=== PATIENT | male | born 1960 | race American Indian/Alaskan Native ===

== ENCOUNTER 2017-01-25 18:38 | Inpatient (IN) | payer BC ==
[2017-01-25] MEDS ORDERED: SENOKOT PO PRN (19:01)
[2017-01-25] MEDS ORDERED: D50W (25GM) IV PRN (19:01)
[2017-01-25] MEDS: COLACE PO SCH (22:32)
[2017-01-25] MEDS: COREG PO SCH (22:33)
[2017-01-25] MEDS: PEPCID PO SCH (22:33)
[2017-01-25] MEDS: NOVOLOG SUB-Q SCH (22:33)
[2017-01-26] MEDS: NOVOLOG SUB-Q SCH ×4 (07:30→22:33)
[2017-01-26 07:37] LABS: Basophils % (Auto) 0.4 % (0.0-1.8); Eosinophils % (Auto) 0.8 % (0.0-4.3); Hematocrit 37.9 % (35.5-45.6); Hemoglobin 12.3 gm/dl (11.8-15.2); Mean Corpuscular HGB Conc 33 % (32-34); Mean Corpuscular Volume 71 fl (84-94); Platelet Count 298 K/mm3 (140-440); Red Blood Count 5.35 M/mm3 (3.65-5.03); Red Cell Distribution Width 15.7 % (13.2-15.2); White Blood Count 5.3 K/mm3 (4.5-11.0)
[2017-01-26 07:54] LABS: Alanine Aminotransferase 30 units/L (7-56); Albumin 3.3 g/dL (3.9-5); Albumin/Globulin Ratio 0.9 %; Alkaline Phosphatase 59 units/L (35-129); Anion Gap 16 mmol/L; BUN/Creatinine Ratio 23.75; Blood Urea Nitrogen 19 mg/dL (9-20); Calcium 9.1 mg/dL (8.4-10.2); Carbon Dioxide 24 mmol/L (22-30); Chloride 102.6 mmol/L (98-107); Glucose 97 mg/dL (75-100); Potassium 4.4 mmol/L (3.6-5.0); Sodium 138 mmol/L (137-145); Total Protein 6.8 g/dL (6.3-8.2)
[2017-01-26] MEDS: COREG PO SCH ×2 (08:00→22:32)
[2017-01-26] MEDS: NORVASC PO SCH (08:00)
[2017-01-26 08:08] LABS: Mean Corpuscular Hemoglobin 23 pg (28-32)
[2017-01-26] MEDS: LOVENOX SUB-Q SCH (08:47)
[2017-01-26] MEDS: PLAVIX PO SCH (08:47)
[2017-01-26] MEDS: GLUCOPHAGE PO SCH ×2 (08:48→18:02)
[2017-01-26] MEDS: BABY ASPIRIN PO SCH (08:48)
[2017-01-26] MEDS: PEPCID PO SCH ×2 (08:48→22:32)
[2017-01-26] MEDS: COLACE PO SCH ×2 (08:48→22:32)
--- NOTE | 2017-01-26 12:02 | History and Physical Report ---
History of Present Illness Date: 01/26/17 Referring Facility: [facility] Date of admission: 01/25/17 18:38 Chief Complaint: acute ischemic right LOLA CVA History of present illness: POST ADMISSION PHYSICIAN EVALUATION ONSET DATE: 01/08/2017 IMPAIRMENT GROUP CODE: 01.1 ETIOLOGIC DIAGNOSIS: acute ischemic right LOLA CVA STATUS CHANGES SINCE PREADMISSION SCREENING: PAS has been reviewed. No acute changes in comparison to PAS. Pt was able to initiate in therapies on today; currently remains an appropriate candidate for IRU admission. PREVIOUS FUNCTIONAL STATUS: Independent with ADLs, gait, transfers CURRENT FUNCTIONAL STATUS: per PAS, s/u-Susie for eating; modA for grooming and bathing; Susie for UB Dressing; mod-maxA for LB dressing and toileting; modA for transfers HPI 56 y.o. who reported acute onset of left sided weakness, dizziness, and dysarthria a few days prior to presenting to [facility]. Pt initially presented to [facility] with symptoms; discharged home. Due to pt having ongoing symptoms, pt later went to [facility] for further evaluation. CT Brain showed hypodensity within the right LOLA distribution; MRI showed remote lacunar infarction and superimposed acute/subacute infraction of right frontal lobe, LOLA territory. Acute care course also notable for AFib with RVR (noted on admission), which spontaneously resolved; Rigth ICA stent placement on 01/13/2107 (80-99% stenosis noted on CTA). Pt has continued with left sided weakness and functional deficits. Pt is now admitted to IRU for aggressive therapies and ongoing medical management. Past History Past Medical History: atrial fib, diabetes, hypertension, other (occlusive thrombus in distal left cephalic vein) Past Surgical History: Other (right ICA stent placement during acute admission; no prior surgeries reported) Social history: Lives alone. denies: smoking Family history: CAD, hypertension, stroke Medications and Allergies Allergies Allergy/AdvReac Type Severity Reaction Status Date / Time No Known Allergies Allergy Unverified 01/25/17 18:47 Home Medications Medication Instructions Recorded Confirmed Last Taken Type Aspirin BABY CHEW TAB 81 mg PO DAILY 01/25/17 01/25/17 Unknown History AtorvaSTATin [Lipitor] 80 mg PO QHS 01/25/17 01/25/17 Unknown History Carvedilol [Coreg] 12.5 mg PO BID 01/25/17 01/25/17 Unknown History Clopidogrel Bisulfate [Plavix] 75 mg PO DAILY 01/25/17 01/25/17 Unknown History Docusate Sodium [Colace CAP] 100 mg PO BID 01/25/17 01/25/17 Unknown History Ranitidine HCl [Zantac 150 MG TAB] 150 mg PO BID 01/25/17 01/25/17 Unknown History Sennosides [Senna] 8.6 mg PO HS 01/25/17 01/25/17 Unknown History amLODIPine [Norvasc] 10 mg PO DAILY 01/25/17 01/25/17 Unknown History metFORMIN 500 mg PO BID 01/25/17 01/25/17 Unknown History Active Meds: Active Medications Acetaminophen (Tylenol) 650 mg PO Q4H PRN PRN Reason: Pain MILD(1-3)/Fever >100.5/SINGLETON Amlodipine Besylate (Norvasc) 10 mg PO QDAY [facility] Last Admin: 01/26/17 08:00 Dose: Not Given Aspirin (Baby Aspirin) 81 mg PO QDAY [facility] Last Admin: 01/26/17 08:48 Dose: 81 mg Carvedilol (Coreg) 12.5 mg PO BID [facility] Last Admin: 01/26/17 08:00 Dose: Not Given Clopidogrel Bisulfate (Plavix) 75 mg PO QDAY [facility] Last Admin: 01/26/17 08:47 Dose: 75 mg Dextrose (D50w (25gm)) 50 ml IV PRN PRN PRN Reason: Hypoglycemia Docusate Sodium (Colace) 100 mg PO BID [facility] Last Admin: 01/26/17 08:48 Dose: 100 mg Enoxaparin Sodium (Lovenox) 40 mg SUB-Q QDAY [facility] Last Admin: 01/26/17 08:47 Dose: 40 mg Famotidine (Pepcid) 20 mg PO BID [facility] Last Admin: 01/26/17 08:48 Dose: 20 mg Insulin Aspart (Novolog) 0 units SUB-Q ACHS [facility] PRN Reason: Protocol Last Admin: 01/26/17 07:30 Dose: Not Given Metformin HCl (Glucophage) 500 mg PO BIDDIAB [facility] Last Admin: 01/26/17 08:48 Dose: 500 mg Senna (Senokot) 8.6 mg PO Q12H PRN PRN Reason: Laxative Effect Review of Systems All systems: negative Ears, nose, mouth and throat: no headache Cardiovascular: no chest pain Respiratory: no cough Gastrointestinal: no nausea, no vomiting Genitourinary Male: no dysuria Neurological: gait dysfunction Exam - Constitutional Vitals: Vital Signs - 12hr 01/26/17 01/26/17 08:00 08:25 Temperature 98.7 F Pulse Rate 56 L Pulse Rate [ 56 L From Monitor] Respiratory 20 Rate Blood Pressure 103/78 Blood Pressure 103/78 [Right Arm] O2 Sat by Pulse 100 Oximetry General appearance: no acute distress, obese - EENT Eyes: EOM intact ENT: hearing intact - Neck Neck: supple, normal ROM - Respiratory Respiratory effort: normal Respiratory: bilateral: CTA - Cardiovascular Rhythm: regular Heart Sounds: Present: S1 & S2 - Extremities Extremities: No edema - Gastrointestinal General gastrointestinal: Present: soft, non-tender, non-distended, normal bowel sounds - Integumentary Integumentary: Present: clear - Musculoskeletal Musculoskeletal: left sided weakness (4/5 LUE, LLE; minimal LUE drift) - Neurologic Neurologic: CNII-XII intact, moves all extremities, other (decreased sensation at LUE) - Psychiatric Psychiatric: appropriate mood/affect, intact judgment & insight, memory intact, cooperative - Allied health notes FIMS assesment as documented by PT/OT/ST: Social interaction/Memory/Problem solving Social Interaction FIM Score 5. Supervision (Needs supv. <10%. Needs encouragement to participate.) Memory FIM Score 4. Minimal Assistance (Recognizes and remembers 75-90%.) Problem Solving FIM Score 4. Minimal Assistance (Solves routine problems 75-90%.) - Labs CBC & Chem 7: 01/26/17 06:48 01/26/17 06:48 Labs: Laboratory Results - last 72 hr 01/25/17 01/26/17 01/26/17 22:15 06:48 06:48 WBC 5.3 RBC 5.35 H Hgb 12.3 Hct 37.9 MCV 71 L MCH 23 L MCHC 33 RDW 15.7 H Plt Count 298 Lymph % (Auto) 21.0 [place] % (Auto) 15.7 H Eos % (Auto) 0.8 Baso % (Auto) 0.4 Lymph # 1.1 L [place] # 0.8 Eos # 0.0 Baso # 0.0 Seg Neutrophils % 62.1 Seg Neutrophils # 3.3 Sodium 138 Potassium 4.4 Chloride 102.6 Carbon Dioxide 24 Anion Gap 16 BUN 19 Creatinine 0.8 Estimated GFR > 60 BUN/Creatinine Ratio 23.75 Glucose 97 POC Glucose 110 H Calcium 9.1 Total Bilirubin 0.40 AST 26 ALT 30 Alkaline Phosphatase 59 Total Protein 6.8 Albumin 3.3 L Albumin/Globulin Ratio 0.9 01/26/17 07:12 WBC RBC Hgb Hct MCV MCH MCHC RDW Plt Count Lymph % (Auto) [place] % (Auto) Eos % (Auto) Baso % (Auto) Lymph # [place] # Eos # Baso # Seg Neutrophils % Seg Neutrophils # Sodium Potassium Chloride Carbon Dioxide Anion Gap BUN Creatinine Estimated GFR BUN/Creatinine Ratio Glucose POC Glucose 75 Calcium Total Bilirubin AST ALT Alkaline Phosphatase Total Protein Albumin Albumin/Globulin Ratio Assessment and Plan Assessment and plan: 56 y.o. male with acute ischemic right LOLA CVA; improving left hemiparesis, gait dysfunction. Also s/p right ICA stent placement. The patient is currently medically stable, however, requires ongoing medical management. Pt is appropriate for inpatient rehabilitation admission and is thought to be able to tolerate at least 3 hours of therapy a day, 5 days a week including 1 hour of physical therapy, 1 hour of occupational therapy, and 1 hour of speech therapy. Patient is able to understand and follow basic directions and has attainable rehab goals. Potential barriers/complications include extension/ recurrent CVA, falls, DVT, PE, arrhythmia, syncope, hypoglycemia, hypotension. Plan 1. Rehabilitation- Pt will undergo multidisciplinary/integrative rehab PT/OT/ CASING RUNNER, Nursing. Areas to be addressed include, but are not limited to PT for mobility, strengthening, transfer training, ROM, endurance, stairs, balance; OT for ADLs, household tasks, adaptive equipment; CASING RUNNER for cognition, compensatory techniques; Nursing for carryover of therapies, pain control, education, skin integrity, medication management, bowel/bladder management; Nutrition as needed ; clinical services professional for discharge planning and equipment needs. Potential interventions include appropriate assistive device or adaptive equipment. Expected overall level of functional improvement by discharge is [place] to supervision for ADLs, gait, transfers. Pt will tentatively be discharged home with outpatient PT. Estimated length of stay is 1-2 weeks. 2. s/p CVA- ASA, Plavix, statin; PT/OT to address functional deficits with mobility and self cares 3. s/p right ICA stent- maintain on ASA and plavix x 3 months; then d/c plavix and continue coumadin and ASA x 3 months; will need to f/u with neuroendovascular after discharge 4. HTN- norvasc and carvedilol 5. AFib- rate controlled 6. DM- metformin, ADA diet; SSI; follow blood sugars; HgA1c 6.9 per records 7. DVT px- lovenox - Patient Problems (1) Acute ischemic right LOLA stroke Current Visit: Yes Status: Acute (2) Hemiparesis affecting left side as late effect of cerebrovascular accident Current Visit: Yes Status: Acute (3) Abnormality of gait following cerebrovascular accident (CVA) Current Visit: Yes Status: Acute (4) Stented coronary artery Current Visit: Yes Status: Acute (5) HTN (hypertension) Current Visit: Yes Status: Chronic Qualifiers: Hypertension type: essential hypertension Qualified Code(s): I10 - Essential (primary) hypertension (6) New onset a-fib Current Visit: Yes Status: Acute (7) Diabetes Current Visit: Yes Status: Acute Qualifiers: Diabetes mellitus type: type 2 Diabetes mellitus complication status: with hyperglycemia Diabetes mellitus complication detail: D Diabetic retinopathy severity: D Proliferative retinopathy type: P Diabetes mellitus macular edema: D Diabetes mellitus mcfp insulin use: without terminal carman use Laterality: L Chronic kidney disease stage: C Qualified Code(s): E11.65 - Type 2 diabetes mellitus with hyperglycemia
[2017-01-27] MEDS: PLAVIX PO SCH (09:51)
[2017-01-27] MEDS: GLUCOPHAGE PO SCH ×2 (09:51→17:25)
[2017-01-27] MEDS: BABY ASPIRIN PO SCH (09:52)
[2017-01-27] MEDS: NORVASC PO SCH (09:52)
[2017-01-27] MEDS: PEPCID PO SCH ×2 (09:53→21:48)
[2017-01-27] MEDS: COLACE PO SCH ×2 (09:53→21:49)
[2017-01-27] MEDS: COREG PO SCH ×2 (09:53→21:47)
[2017-01-27] MEDS: LOVENOX SUB-Q SCH (09:54)
[2017-01-27] MEDS: NOVOLOG SUB-Q SCH ×4 (09:54→23:54)
--- NOTE | 2017-01-27 10:47 | IRU Plan of Care ---
Interdisciplinary Plan of Care - IP IRU INTERDISCIPLINARY PLAN: [facility] Inpatient Rehab Unit Plan of Care IRU Interdisciplinary Care Plan Start: 01/25/17 18: 44 Freq: Admission then PRN Status: Active Document 01/27/17 09:22 DB (Rec: 01/27/17 09:26 DB [id number]) Interdisciplinary Problem List Interdisciplinary Problem List Interdisciplinary Problem List Impaired Bathing/Grooming Query Text:Answers will Trigger Problems Impaired Dressing and Outcomes on Worklist. Impaired Mobility Impaired Transfers Impaired Toileting Impaired Problem Solving Impaired Memory Knowledge Deficits Impaired Safety Medications Education IRU Interdisciplinary Care Plan Therapy Services Therapy Services Will Include: Physical Therapy Query Text:Patient will be seen for a Occupational Therapy minimum of 3 hours of daily therapy 5 Speech Therapy out of 7 days a week. Therapy intensity may be adjusted within a 7 consecutive day period to effectively serve the individual needs of the patient. 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 Treatment Duration 10-14 days Problem Area: Eating/Swallowing Eating/Swallowing Outcomes Eating/Swallowing Interventions Problem Area: Bathing/Grooming Bathing/Grooming Outcomes Improve [place] w/ Grooming Improve [place] w/ Bathing Bathing/Grooming Interventions ADL Training Use of Assistive Devices Therapeutic Exercise Therapeutic Activity Neuromuscular Re-Education Balance Work Activity Tolerance Work Patient/Caregiver Education Problem Area: Dressing Dressing Outcomes Improve [place] w/ UB Dressing Improve [place] w/ LB Dressing Dressing Interventions ADL Training Use of Assistive Devices Neuromuscular Re-Education Therapeutic Exercise Balance Work Patient/Caregiver Education Problem Area: Mobility Mobility Outcomes Improve [place] w/ Bed Mobility Improve [place] w/ Ambulation Improve [place] w/ Stairs /Curb Improve [place] w/ Wheelchair Mobility Interventions Therapeutic Exercise Neuromuscular Re-Ed. Activity Tolerance Work Use of Assistive Devices Patient/Caregiver Education Bed Mobility Work Gait Training W/C Mobility Work Problem Area: Transfers Transfers Outcomes Improve [place] w/ Bed Transfers Improve [place] w/ Toilet Transfers Improve [place] w/ Tub/ Shower Transfers Improve [place] w/ Car Transfers Transfers Interventions Transfer Training Therapeutic Exercise Neuromuscular Re-Education Activity Tolerance Work Use of Assistive Devices Patient/Caregiver Education Problem Area: Bowel/Bladder Managment Bowel/Bladder Outcomes Remain free of UTI Bowel/Bladder Interventions Patient/Caregiver Education Problem Area: Toileting Toileting Outcomes Improve [place] w/ Toileting Toileting Interventions ADL Training Balance Work Use of Assistive Devices Patient/Caregiver Education Problem Area: Nutrition Nutrition Outcomes Understand and Comply w/ Diet Improve/Maintain Oral Intake Nutrition Interventions Monitor Nutrient Intake Patient/Caregiver Education Problem Area: Comprehension Comprehension Outcomes Comprehension Interventions Problem Area: Expression Expression Outcomes Expression Interventions Problem Area: Problem Solving Problem Solving Outcomes Improve Problem Solving Problem Solving Interventions Cognitive Training Safety Education Patient/Caregiver Education Problem Area: Memory Memory Outcomes Use Memory Aids Memory Interventions Cognitive Training Review of Precautions Patient/Caregiver Education Problem Area: Pain Management Pain Management Outcomes Pain Management Interventions Problem Area: Knowledge Deficits Knowledge Deficits Outcomes Verbalize Precautions Verbalize Understanding of S/S of Stroke Knowledge Deficits Interventions Disease/Injury/Sx. Intervention Education Medication Use Education Disease Management Education Safety Education Problem Area: Skin/Tissue Integrity Skin/Tissue Integrity Outcomes Demonstrate Understanding of Pressure Relief Skin/Tissue Integrity Interventions Pressure Relief Instruction Positioning/Turning Problem Area: Social Interaction Social Interaction Outcomes Social Interaction Interventions Problem Area: Adjustment to Disability Adjustment to Disability Outcomes Adjustment to Disability Interventions Problem Area: Discharge Concerns Discharge Concerns Outcomes Discharge Home w/ Necessary Equipment Have Home Health/Outpatient Services Discharge Concerns Interventions Discharge Planning Family/Caregiver Conference Family/Caregiver Training Problem Area: Community Reintegration Community Reintegration Outcomes Demonstrate Understanding of Community Resources Community Reintegration Interventions Provide Community Resources Problem Area: Home Management Home Management Outcomes Home Management Interventions Problem Area: Safety Safety Outcomes Provide Safe Environment Perform Selfcare Safely Demonstrate Good Safety w/ Transfers/Mobility Safety Interventions Identify Fall Risk [place] Pt. to Environment Reduce Environmental Hazards Problem Area: Medication Education Medication Education Outcomes Patient/Caregiver will Verbalize Understanding of Medications Medication Education Interventions Explain Administration/Side Effects/Interactions Problem Area: Diabetes Education Diabetes Education Outcomes Diabetes Education Interventions Problem Area: Oxygenation Oxygenation Outcomes Oxygenation Interventions Problem Area: Cardiovascular Cardiovascular Outcomes Cardiovascular Interventions Physician Only Medical Prognosis and Rehabilitation Patient demonstrates good Potential (Completed by Physician) rehab potential. Medical Prognosis: Good This plan of care has been developed based on the findings from the pre- admission assessment, post admission physician evaluation, information gathered from the assessments from all therapy disciplines and other pertinent clinicians. The plan of care has been reviewed and discussed in collaboration with the interdisciplinary team. The plan of care will be reviewed and updated at least weekly. 56 y.o. right handed male with acute ischemic right LOLA CVA; improving left hemiparesis, gait dysfunction. Also s/p right ICA stent placement. The patient remains at risk for extension/recurrent CVA, falls, DVT, PE, arrhythmia , syncope, hypoglycemia, hypotension. Blood pressure and blood sugars are controlled on current regimen. Pt continues with functional deficits; however, is tolerating therapies well. Pt remains an appropriate candidate for IRU admission.
--- NOTE | 2017-01-27 12:30 | Progress Note ---
Assessment and Plan 56 y.o. right handed male with acute ischemic right LOLA CVA; improving left hemiparesis, gait dysfunction; s/p right ICA stent placement - s/p CVA- ASA, Plavix, statin - gait dysfunction secondary to CVA- continue gait training with PT; modA for gait - s/p right ICA stent- maintain on ASA and plavix x 3 months; then d/c plavix and continue coumadin and ASA x 3 months; will need to f/u with neuroendovascular after discharge - HTN- continue norvasc and carvedilol; adjust as needed - AFib- rate controlled - DM- blood sugars well controlled on metformin, ADA diet; SSI - DVT px- lovenox - Patient Problems (1) Acute ischemic right LOLA stroke Current Visit: Yes Status: Acute (2) Hemiparesis affecting left side as late effect of cerebrovascular accident Current Visit: Yes Status: Acute (3) Abnormality of gait following cerebrovascular accident (CVA) Current Visit: Yes Status: Acute (4) Stented coronary artery Current Visit: Yes Status: Acute (5) HTN (hypertension) Current Visit: Yes Status: Chronic Qualifiers: Hypertension type: essential hypertension Qualified Code(s): I10 - Essential (primary) hypertension (6) New onset a-fib Current Visit: Yes Status: Acute (7) Diabetes Current Visit: Yes Status: Acute Qualifiers: Diabetes mellitus type: type 2 Diabetes mellitus complication status: with hyperglycemia Diabetes mellitus complication detail: D Diabetic retinopathy severity: D Proliferative retinopathy type: P Diabetes mellitus macular edema: D Diabetes mellitus alf insulin use: without alf use Laterality: L Chronic kidney disease stage: C Qualified Code(s): E11.65 - Type 2 diabetes mellitus with hyperglycemia Subjective Date of service: 01/27/17 Principal diagnosis: acute ischemic right LOLA CVA Interval history: Pt seen in room this AM, F/U IPR course secondary to acute ischemic right LOLA CVA. Pt is without any new complaints on today; denies any headache, swallowing difficulties Objective - Constitutional Vitals: Vital Signs - 12hr 01/27/17 01/27/17 01/27/17 08:00 09:52 09:53 Temperature 97.7 F Pulse Rate 65 65 Pulse Rate [ 66 From Monitor] Respiratory 20 Rate Blood Pressure 150/85 150/85 Blood Pressure 150/85 [Right Arm] O2 Sat by Pulse 96 Oximetry General appearance: Present: no acute distress, obese - EENT Eyes: EOM intact ENT: hearing intact - Neck Neck: supple, normal ROM - Respiratory Respiratory effort: normal - Gastrointestinal General gastrointestinal: Present: soft, non-tender - Integumentary Integumentary: clear - Neurologic Neurologic: CNII-XII intact, moves all extremities - Psychiatric Psychiatric: appropriate mood/affect, cooperative - Allied health notes Allied health notes reviewed: PT (Susie for transfers and gait; supervision for bed mobility), OT (s/u to modA for ADLs) - Labs CBC & Chem 7: 01/26/17 06:48 01/26/17 06:48 Labs: Abnormal lab results 01/26/17 01/27/17 Range/Units 16:08 11:37 POC Glucose 111 H 123 H (70-105)
[2017-01-28] MEDS: COREG PO SCH ×2 (09:06→21:34)
[2017-01-28] MEDS: PEPCID PO SCH ×2 (09:06→21:33)
[2017-01-28] MEDS: GLUCOPHAGE PO SCH ×2 (09:06→17:19)
[2017-01-28] MEDS: PLAVIX PO SCH (09:06)
[2017-01-28] MEDS: BABY ASPIRIN PO SCH (09:06)
[2017-01-28] MEDS: NORVASC PO SCH (09:06)
[2017-01-28] MEDS: COLACE PO SCH ×2 (09:16→21:33)
[2017-01-28] MEDS: LOVENOX SUB-Q SCH (09:16)
[2017-01-28] MEDS: NOVOLOG SUB-Q SCH ×4 (09:20→22:08)
[2017-01-29] MEDS: NOVOLOG SUB-Q SCH ×4 (08:07→21:58)
[2017-01-29] MEDS: GLUCOPHAGE PO SCH ×2 (08:07→17:43)
[2017-01-29] MEDS: NORVASC PO SCH (09:14)
[2017-01-29] MEDS: PEPCID PO SCH ×2 (09:15→21:56)
[2017-01-29] MEDS: BABY ASPIRIN PO SCH (09:16)
[2017-01-29] MEDS: PLAVIX PO SCH (09:16)
[2017-01-29] MEDS: COLACE PO SCH ×2 (09:16→21:56)
[2017-01-29] MEDS: COREG PO SCH ×2 (09:17→21:56)
[2017-01-29] MEDS: LOVENOX SUB-Q SCH (09:18)
[2017-01-30] MEDS: NOVOLOG SUB-Q SCH ×4 (08:19→21:42)
[2017-01-30] MEDS: PLAVIX PO SCH (09:04)
[2017-01-30] MEDS: NORVASC PO SCH (09:05)
[2017-01-30] MEDS: COREG PO SCH ×2 (09:06→21:42)
[2017-01-30] MEDS: BABY ASPIRIN PO SCH (09:06)
[2017-01-30] MEDS: COLACE PO SCH ×2 (09:06→21:42)
[2017-01-30] MEDS: GLUCOPHAGE PO SCH ×2 (09:06→17:19)
[2017-01-30] MEDS: PEPCID PO SCH ×2 (09:06→21:41)
[2017-01-30] MEDS: LOVENOX SUB-Q SCH (09:06)
--- NOTE | 2017-01-30 11:14 | Progress Note ---
Assessment and Plan 56 y.o. right handed male with acute ischemic right LOLA CVA; improving left hemiparesis, gait dysfunction; s/p right ICA stent placement - s/p CVA- ASA, Plavix, statin - gait dysfunction secondary to CVA- ambulating >300 feet with RW - s/p right ICA stent- maintain on ASA and plavix x 3 months; then d/c plavix and continue coumadin and ASA x 3 months; will need to f/u with neuroendovascular after discharge; pt/sister educated regarding this plan on today - HTN- well controlled on norvasc and carvedilol - AFib- rate controlled - DM- blood sugars remain well controlled on metformin, ADA diet; SSI - DVT px- lovenox - Patient Problems (1) Acute ischemic right LOLA stroke Current Visit: Yes Status: Acute (2) Hemiparesis affecting left side as late effect of cerebrovascular accident Current Visit: Yes Status: Acute (3) Abnormality of gait following cerebrovascular accident (CVA) Current Visit: Yes Status: Acute (4) Stented coronary artery Current Visit: Yes Status: Acute (5) HTN (hypertension) Current Visit: Yes Status: Chronic Qualifiers: Hypertension type: essential hypertension Qualified Code(s): I10 - Essential (primary) hypertension (6) New onset a-fib Current Visit: Yes Status: Acute (7) Diabetes Current Visit: Yes Status: Acute Qualifiers: Diabetes mellitus type: type 2 Diabetes mellitus complication status: with hyperglycemia Diabetes mellitus complication detail: D Diabetic retinopathy severity: D Proliferative retinopathy type: P Diabetes mellitus macular edema: D Diabetes mellitus prison insulin use: without buttermilk drier operator use Laterality: L Chronic kidney disease stage: C Qualified Code(s): E11.65 - Type 2 diabetes mellitus with hyperglycemia Subjective Date of service: 01/30/17 Principal diagnosis: acute ischemic right LOLA CVA Interval history: Pt seen in room this AM, F/U IPR course secondary to acute ischemic right LOLA CVA. Pt's sister is present in room. Pt complains of left eye dryness/ redness. Otherwise no acute issues over weekend Objective - Constitutional Vitals: Vital Signs - 12hr 01/30/17 01/30/17 07:13 09:05 Temperature 98.0 F Pulse Rate 62 Pulse Rate [ 62 Left Brachial] Respiratory 20 Rate Blood Pressure 126/74 Blood Pressure 126/74 [Left Arm] O2 Sat by Pulse 100 Oximetry General appearance: Present: no acute distress, obese - EENT Eyes: conjunctival injection (left eye ) ENT: hearing intact - Neck Neck: supple, normal ROM - Respiratory Respiratory effort: normal Extremities: No edema - Gastrointestinal General gastrointestinal: Present: soft, non-tender - Neurologic Neurologic: CNII-XII intact, moves all extremities - Psychiatric Psychiatric: appropriate mood/affect, cooperative - Allied health notes Allied health notes reviewed: PT (SBA for gait, >300 feet with RW) - Labs CBC & Chem 7: 01/26/17 06:48 01/26/17 06:48 Labs: Abnormal lab results 01/29/17 Range/Units 21:17 POC Glucose 109 H (70-105)
[2017-01-30] MEDS: VISINE-A OS SCH (12:39)
[2017-01-31] MEDS: NOVOLOG SUB-Q SCH ×3 (08:10→17:00)
[2017-01-31] MEDS: COREG PO SCH ×2 (10:42→22:28)
[2017-01-31] MEDS: NORVASC PO SCH (10:42)
[2017-01-31] MEDS: VISINE-A OS SCH (10:43)
[2017-01-31] MEDS: BABY ASPIRIN PO SCH (10:43)
[2017-01-31] MEDS: COLACE PO SCH ×2 (10:47→22:29)
[2017-01-31] MEDS: PEPCID PO SCH ×2 (10:47→22:27)
[2017-01-31] MEDS: PLAVIX PO SCH (10:47)
[2017-01-31] MEDS: GLUCOPHAGE PO SCH ×2 (10:47→18:27)
[2017-01-31] MEDS: LOVENOX SUB-Q SCH (10:52)
--- NOTE | 2017-01-31 13:49 | Progress Note ---
Assessment and Plan 56 y.o. right handed male with acute ischemic right LOLA CVA; improving left hemiparesis, gait dysfunction; s/p right ICA stent placement - s/p CVA- ASA, Plavix, statin - gait dysfunction secondary to CVA- Susie for gait - s/p right ICA stent- ASA/plavix - HTN- continue norvasc, carvedilol - AFib- rate controlled - DM- stable; continue metformin, ADA diet; SSI - DVT px- lovenox - team conference was held on today- pt noted to be independent for eating; UB Dressing; Dillon for grooming; supervision for bathing, toileting, bed mobility, wheelchair mobility; Susie for LB dressing, transfers. gait with RW; Susie for memory and problem solving. Anticipated d/c date is 02/07. - Patient Problems (1) Acute ischemic right LOLA stroke Current Visit: Yes Status: Acute (2) Hemiparesis affecting left side as late effect of cerebrovascular accident Current Visit: Yes Status: Acute (3) Abnormality of gait following cerebrovascular accident (CVA) Current Visit: Yes Status: Acute (4) Stented coronary artery Current Visit: Yes Status: Acute (5) HTN (hypertension) Current Visit: Yes Status: Chronic Qualifiers: Hypertension type: essential hypertension Qualified Code(s): I10 - Essential (primary) hypertension (6) New onset a-fib Current Visit: Yes Status: Acute (7) Diabetes Current Visit: Yes Status: Acute Qualifiers: Diabetes mellitus type: type 2 Diabetes mellitus complication status: with hyperglycemia Diabetes mellitus complication detail: D Diabetic retinopathy severity: D Proliferative retinopathy type: P Diabetes mellitus macular edema: D Diabetes mellitus chcf insulin use: without chcf use Laterality: L Chronic kidney disease stage: C Qualified Code(s): E11.65 - Type 2 diabetes mellitus with hyperglycemia Subjective Date of service: 01/31/17 Principal diagnosis: acute ischemic right LOLA CVA Interval history: Pt seen in room this AM, F/U IPR course secondary to acute ischemic right LOLA CVA. Reports left eye discomfort has improved on today with eye drops Objective - Constitutional Vitals: Vital Signs - 12hr 01/31/17 08:00 Temperature 98.4 F Pulse Rate [ 57 L Left Brachial] Respiratory 20 Rate Blood Pressure 134/72 [Left Arm] O2 Sat by Pulse 99 Oximetry General appearance: Present: no acute distress, obese - EENT Eyes: EOM intact ENT: hearing intact - Neck Neck: supple, normal ROM - Respiratory Respiratory effort: normal Respiratory: bilateral: CTA - Cardiovascular Rhythm: regular Heart Sounds: Present: S1 & S2 Extremities: No edema - Gastrointestinal General gastrointestinal: Present: soft, non-tender, normal bowel sounds - Integumentary Integumentary: clear - Neurologic Neurologic: CNII-XII intact, moves all extremities - Psychiatric Psychiatric: appropriate mood/affect, cooperative - Labs CBC & Chem 7: 01/26/17 06:48 01/26/17 06:48 Labs: Abnormal lab results 01/30/17 01/30/17 Range/Units 15:54 21:12 POC Glucose 115 H 123 H (70-105)
[2017-02-01] MEDS: NOVOLOG SUB-Q SCH ×4 (07:30→21:22)
[2017-02-01] MEDS: LOVENOX SUB-Q SCH (09:28)
[2017-02-01] MEDS: VISINE-A OS SCH (09:28)
[2017-02-01] MEDS: PLAVIX PO SCH (09:29)
[2017-02-01] MEDS: GLUCOPHAGE PO SCH ×2 (09:29→17:14)
[2017-02-01] MEDS: PEPCID PO SCH ×2 (09:29→21:24)
[2017-02-01] MEDS: COREG PO SCH ×2 (09:30→21:24)
[2017-02-01] MEDS: BABY ASPIRIN PO SCH (09:31)
[2017-02-01] MEDS: COLACE PO SCH ×2 (09:31→21:25)
[2017-02-01] MEDS: NORVASC PO SCH (09:31)
--- NOTE | 2017-02-01 10:07 | Progress Note ---
Assessment and Plan 56 y.o. right handed male with acute ischemic right LOLA CVA; improving left hemiparesis, gait dysfunction; s/p right ICA stent placement - s/p CVA- ASA, Plavix, statin - gait dysfunction secondary to CVA- Susie/CGA for gait; ongoing gait training with PT - s/p right ICA stent- ASA/plavix - HTN- norvasc, carvedilol - AFib- rate controlled - DM- very well controlled on metformin, ADA diet; not requiring SSI - DVT px- lovenox - Patient Problems (1) Acute ischemic right LOLA stroke Current Visit: Yes Status: Acute (2) Hemiparesis affecting left side as late effect of cerebrovascular accident Current Visit: Yes Status: Acute (3) Abnormality of gait following cerebrovascular accident (CVA) Current Visit: Yes Status: Acute (4) Stented coronary artery Current Visit: Yes Status: Acute (5) HTN (hypertension) Current Visit: Yes Status: Chronic Qualifiers: Hypertension type: essential hypertension Qualified Code(s): I10 - Essential (primary) hypertension (6) New onset a-fib Current Visit: Yes Status: Acute (7) Diabetes Current Visit: Yes Status: Acute Qualifiers: Diabetes mellitus type: type 2 Diabetes mellitus complication status: with hyperglycemia Diabetes mellitus complication detail: D Diabetic retinopathy severity: D Proliferative retinopathy type: P Diabetes mellitus macular edema: D Diabetes mellitus shelter insulin use: without termite treater helper use Laterality: L Chronic kidney disease stage: C Qualified Code(s): E11.65 - Type 2 diabetes mellitus with hyperglycemia Subjective Date of service: 02/01/17 Principal diagnosis: acute ischemic right LOLA CVA Interval history: Pt seen this AM in gym, F/U IPR course secondary to acute ischemic right LOLA CVA. No new complaints on today Objective - Constitutional Vitals: Vital Signs - 12hr 01/31/17 02/01/17 02/01/17 22:28 08:00 09:30 Temperature 98.4 F Pulse Rate 104 H 64 64 Respiratory 20 Rate Blood Pressure 127/78 154/86 Blood Pressure 154/86 [Left] O2 Sat by Pulse 99 Oximetry 02/01/17 09:31 Temperature Pulse Rate Respiratory Rate Blood Pressure 154/86 Blood Pressure [Left] O2 Sat by Pulse Oximetry General appearance: Present: no acute distress, obese - EENT Eyes: EOM intact ENT: hearing intact - Neck Neck: supple, normal ROM - Respiratory Respiratory effort: normal Extremities: No edema - Integumentary Integumentary: clear - Neurologic Neurologic: CNII-XII intact, moves all extremities - Psychiatric Psychiatric: appropriate mood/affect, cooperative - Allied health notes Allied health notes reviewed: PT (CGA/Susie for gait and stairs), ST (improving memory ) - Labs CBC & Chem 7: 01/26/17 06:48 01/26/17 06:48 Labs: Abnormal lab results 01/31/17 Range/Units 21:05 POC Glucose 116 H (70-105)
[2017-02-02 04:52] LABS: Hematocrit 37.8 % (35.5-45.6); Hemoglobin 12.1 gm/dl (11.8-15.2); Mean Corpuscular HGB Conc 32 % (32-34); Mean Corpuscular Volume 70 fl (84-94); Platelet Count 258 K/mm3 (140-440); Red Cell Distribution Width 15.6 % (13.2-15.2); White Blood Count 5.5 K/mm3 (4.5-11.0)
[2017-02-02 05:05] LABS: Anion Gap 15 mmol/L; BUN/Creatinine Ratio 18.75; Blood Urea Nitrogen 15 mg/dL (9-20); Carbon Dioxide 26 mmol/L (22-30); Chloride 101.9 mmol/L (98-107); Glucose 86 mg/dL (75-100); Potassium 4.1 mmol/L (3.6-5.0); Sodium 139 mmol/L (137-145)
[2017-02-02 05:15] LABS: Mean Corpuscular Hemoglobin 22 pg (28-32)
[2017-02-02] MEDS: BABY ASPIRIN PO SCH (08:28)
[2017-02-02] MEDS: LOVENOX SUB-Q SCH (08:28)
[2017-02-02] MEDS: GLUCOPHAGE PO SCH ×2 (08:29→17:13)
[2017-02-02] MEDS: NOVOLOG SUB-Q SCH ×4 (08:29→21:02)
[2017-02-02] MEDS: PLAVIX PO SCH (08:29)
[2017-02-02] MEDS: NORVASC PO SCH (08:29)
[2017-02-02] MEDS: COREG PO SCH ×2 (08:30→21:05)
[2017-02-02] MEDS: PEPCID PO SCH ×2 (08:30→21:05)
[2017-02-02] MEDS: COLACE PO SCH ×2 (08:30→21:07)
--- NOTE | 2017-02-02 12:07 | Progress Note ---
Assessment and Plan 56 y.o. right handed male with acute ischemic right LOLA CVA; improving left hemiparesis, gait dysfunction; s/p right ICA stent placement - s/p CVA- ASA, Plavix, statin - gait dysfunction secondary to CVA- progressed to supervision with transfers and gait - s/p right ICA stent- ASA/plavix - HTN- norvasc, carvedilol - AFib- rate controlled - DM- metformin, ADA diet; not requiring SSI - DVT px- lovenox - Patient Problems (1) Acute ischemic right LOLA stroke Current Visit: Yes Status: Acute (2) Hemiparesis affecting left side as late effect of cerebrovascular accident Current Visit: Yes Status: Acute (3) Abnormality of gait following cerebrovascular accident (CVA) Current Visit: Yes Status: Acute (4) Stented coronary artery Current Visit: Yes Status: Acute (5) HTN (hypertension) Current Visit: Yes Status: Chronic Qualifiers: Hypertension type: essential hypertension Qualified Code(s): I10 - Essential (primary) hypertension (6) New onset a-fib Current Visit: Yes Status: Acute (7) Diabetes Current Visit: Yes Status: Acute Qualifiers: Diabetes mellitus type: type 2 Diabetes mellitus complication status: with hyperglycemia Diabetes mellitus complication detail: D Diabetic retinopathy severity: D Proliferative retinopathy type: P Diabetes mellitus macular edema: D Diabetes mellitus watermaster insulin use: without watermaster use Laterality: L Chronic kidney disease stage: C Qualified Code(s): E11.65 - Type 2 diabetes mellitus with hyperglycemia Subjective Date of service: 02/02/17 Principal diagnosis: acute ischemic right LOLA CVA Interval history: Pt seen in [employer] this AM, F/U IPR course secondary to acute ischemic right LOLA CVA. Reports left sided stiffness Objective - Constitutional Vitals: Vital Signs - 12hr 02/02/17 02/02/17 02/02/17 07:55 08:29 08:30 Temperature 98.5 F Pulse Rate 76 76 76 Respiratory 20 Rate Blood Pressure 153/77 153/77 Blood Pressure 153/77 [Left] O2 Sat by Pulse 97 Oximetry General appearance: Present: no acute distress, obese - EENT Eyes: EOM intact ENT: hearing intact - Neck Neck: supple, normal ROM - Respiratory Respiratory effort: normal Extremities: No edema - Integumentary Integumentary: clear - Neurologic Neurologic: CNII-XII intact, moves all extremities - Psychiatric Psychiatric: appropriate mood/affect, cooperative - Allied health notes Allied health notes reviewed: nursing (supervision with bathing, UB dressing, grooming; Susie for LB Dressing) - Labs CBC & Chem 7: 02/02/17 04:17 02/02/17 04:17 Labs: Abnormal lab results 02/02/17 Range/Units 04:17 RBC 5.40 H (3.65-5.03) M/mm3 MCV 70 L (84-94) fl MCH 22 L (28-32) pg RDW 15.6 H (13.2-15.2) %
[2017-02-02] MEDS: VISINE-A OS SCH (12:10)
[2017-02-02] MEDS ORDERED: VISINE-A OS PRN (13:00)
[2017-02-03] MEDS: NOVOLOG SUB-Q SCH ×4 (07:40→21:16)
[2017-02-03] MEDS: COREG PO SCH ×2 (07:59→21:17)
[2017-02-03] MEDS: NORVASC PO SCH (07:59)
[2017-02-03] MEDS: COLACE PO SCH ×2 (07:59→21:17)
[2017-02-03] MEDS: PEPCID PO SCH ×2 (07:59→21:17)
[2017-02-03] MEDS: GLUCOPHAGE PO SCH ×2 (07:59→17:03)
[2017-02-03] MEDS: PLAVIX PO SCH (07:59)
[2017-02-03] MEDS: BABY ASPIRIN PO SCH (07:59)
[2017-02-03] MEDS: LOVENOX SUB-Q SCH (08:00)
--- NOTE | 2017-02-03 10:39 | Progress Note ---
Assessment and Plan 56 y.o. right handed male with acute ischemic right LOLA CVA; improving left hemiparesis, gait dysfunction; s/p right ICA stent placement - s/p CVA- ASA, Plavix, statin - gait dysfunction secondary to CVA- advanced to Susie mishra; supervision with RW - s/p right ICA stent- ASA/plavix - HTN- norvasc, carvedilol - AFib- rate controlled - DM- metformin, ADA diet; not requiring SSI - DVT px- lovenox - Patient Problems (1) Acute ischemic right LOLA stroke Current Visit: Yes Status: Acute (2) Hemiparesis affecting left side as late effect of cerebrovascular accident Current Visit: Yes Status: Acute (3) Abnormality of gait following cerebrovascular accident (CVA) Current Visit: Yes Status: Acute (4) Stented coronary artery Current Visit: Yes Status: Acute (5) HTN (hypertension) Current Visit: Yes Status: Chronic Qualifiers: Hypertension type: essential hypertension Qualified Code(s): I10 - Essential (primary) hypertension (6) New onset a-fib Current Visit: Yes Status: Acute (7) Diabetes Current Visit: Yes Status: Acute Qualifiers: Diabetes mellitus type: type 2 Diabetes mellitus complication status: with hyperglycemia Diabetes mellitus complication detail: D Diabetic retinopathy severity: D Proliferative retinopathy type: P Diabetes mellitus macular edema: D 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 No complaints on today; reports sister will be assisting him after discharge Objective - Constitutional Vitals: Vital Signs - 12hr 02/03/17 02/03/17 07:59 08:00 Temperature 98.6 F Pulse Rate 64 64 Respiratory 20 Rate Blood Pressure 148/84 Blood Pressure 148/84 [Left] O2 Sat by Pulse 98 Oximetry General appearance: Present: no acute distress, obese - EENT Eyes: EOM intact ENT: hearing intact - Neck Neck: supple, normal ROM - Respiratory Respiratory effort: normal Extremities: No edema - Integumentary Integumentary: clear - Neurologic Neurologic: CNII-XII intact, moves all extremities - Psychiatric Psychiatric: appropriate mood/affect, cooperative - Allied health notes Allied health notes reviewed: PT (supervision with transfers and gait using a RW ; Susie for straight cane), OT (Independent to Susie for ADLs) - Labs CBC & Chem 7: 02/02/17 04:17 02/02/17 04:17
[2017-02-03] MEDS: TYLENOL PO PRN (20:18)
[2017-02-04] MEDS: LOVENOX SUB-Q SCH (08:10)
[2017-02-04] MEDS: NORVASC PO SCH (08:10)
[2017-02-04] MEDS: BABY ASPIRIN PO SCH (08:11)
[2017-02-04] MEDS: NOVOLOG SUB-Q SCH ×3 (08:11→17:00)
[2017-02-04] MEDS: GLUCOPHAGE PO SCH ×2 (08:11→17:41)
[2017-02-04] MEDS: PEPCID PO SCH ×2 (08:11→21:55)
[2017-02-04] MEDS: COLACE PO SCH ×2 (08:11→21:55)
[2017-02-04] MEDS: PLAVIX PO SCH (08:11)
[2017-02-04] MEDS: COREG PO SCH ×2 (08:11→21:56)
[2017-02-04] MEDS: TYLENOL PO PRN (08:16)
[2017-02-05] MEDS: COLACE PO SCH ×2 (09:06→21:30)
[2017-02-05] MEDS: PEPCID PO SCH ×2 (09:06→21:29)
[2017-02-05] MEDS: LOVENOX SUB-Q SCH (09:06)
[2017-02-05] MEDS: BABY ASPIRIN PO SCH (09:07)
[2017-02-05] MEDS: GLUCOPHAGE PO SCH ×2 (09:07→16:25)
[2017-02-05] MEDS: PLAVIX PO SCH (09:08)
[2017-02-05] MEDS: COREG PO SCH ×2 (09:11→21:29)
[2017-02-05] MEDS: NOVOLOG SUB-Q SCH ×4 (09:11→21:27)
[2017-02-05] MEDS: NORVASC PO SCH (09:11)
[2017-02-05] MEDS: TYLENOL PO PRN (16:25)
[2017-02-06] MEDS: NOVOLOG SUB-Q SCH ×4 (08:15→22:02)
[2017-02-06] MEDS: COLACE PO SCH ×2 (09:13→22:05)
[2017-02-06] MEDS: GLUCOPHAGE PO SCH ×2 (09:13→17:05)
[2017-02-06] MEDS: BABY ASPIRIN PO SCH (09:13)
[2017-02-06] MEDS: LOVENOX SUB-Q SCH (09:13)
[2017-02-06] MEDS: PEPCID PO SCH ×2 (09:13→22:04)
[2017-02-06] MEDS: PLAVIX PO SCH (09:14)
[2017-02-06] MEDS: NORVASC PO SCH (09:14)
[2017-02-06] MEDS: COREG PO SCH ×2 (09:15→22:05)
[2017-02-06] MEDS: TYLENOL PO PRN (09:21)
--- NOTE | 2017-02-06 12:29 | Progress Note ---
Assessment and Plan 56 y.o. right handed male with acute ischemic right LOLA CVA; improving left hemiparesis, gait dysfunction; s/p right ICA stent placement - s/p CVA- ASA, Plavix, statin - gait dysfunction secondary to CVA- supervision with RW for gait and transfers ; min/CGA on admission - s/p right ICA stent- ASA/plavix - HTN- norvasc, carvedilol - AFib- rate controlled - DM- metformin, ADA diet - DVT px- lovenox - tentative d/c home on tomorrow - Patient Problems (1) Acute ischemic right LOLA stroke Current Visit: Yes Status: Acute (2) Hemiparesis affecting left side as late effect of cerebrovascular accident Current Visit: Yes Status: Acute (3) Abnormality of gait following cerebrovascular accident (CVA) Current Visit: Yes Status: Acute (4) Stented coronary artery Current Visit: Yes Status: Acute (5) HTN (hypertension) Current Visit: Yes Status: Chronic Qualifiers: Hypertension type: essential hypertension Qualified Code(s): I10 - Essential (primary) hypertension (6) New onset a-fib Current Visit: Yes Status: Acute (7) Diabetes Current Visit: Yes Status: Acute Qualifiers: Diabetes mellitus type: type 2 Diabetes mellitus complication status: with hyperglycemia Diabetes mellitus complication detail: D Diabetic retinopathy severity: D Proliferative retinopathy type: P Diabetes mellitus macular edema: D Diabetes mellitus commonwealth attorney insulin use: without halfway use Laterality: L Chronic kidney disease stage: C Qualified Code(s): E11.65 - Type 2 diabetes mellitus with hyperglycemia Subjective Date of service: 02/06/17 Principal diagnosis: acute ischemic right LOLA CVA Interval history: Pt seen in room this afternoon, F/U IPR course secondary to acute ischemic right LOLA CVA. No complaints on today; sister completed family training on Monday; last BM on yesterday Objective - Constitutional Vitals: Vital Signs - 12hr 02/06/17 02/06/17 02/06/17 07:36 09:14 09:15 Temperature 98.4 F Pulse Rate 64 64 Pulse Rate [ 64 Left Brachial] Respiratory 18 Rate Blood Pressure 154/82 154/82 Blood Pressure 154/82 [Left Arm] Blood Pressure 150/78 [Right Arm] O2 Sat by Pulse 64 L Oximetry 02/06/17 09:21 Temperature Pulse Rate Pulse Rate [ Left Brachial] Respiratory 20 Rate Blood Pressure Blood Pressure [Left Arm] Blood Pressure [Right Arm] O2 Sat by Pulse Oximetry General appearance: Present: no acute distress, obese - EENT Eyes: EOM intact ENT: hearing intact - Neck Neck: supple, normal ROM - Respiratory Respiratory effort: normal Respiratory: bilateral: CTA - Cardiovascular Rhythm: regular Heart Sounds: Present: S1 & S2 Extremities: No edema - Gastrointestinal General gastrointestinal: Present: soft, non-tender, normal bowel sounds - Integumentary Integumentary: clear - Neurologic Neurologic: CNII-XII intact, moves all extremities - Psychiatric Psychiatric: appropriate mood/affect, cooperative - Allied health notes Allied health notes reviewed: ST (improved cognition since admission), OT (Dillon for grooming, supervision for shower transfers and bathing; independent for UB dressing; Susie for LB Dressing) - Labs CBC & Chem 7: 02/02/17 04:17 02/02/17 04:17
[2017-02-07] MEDS: NOVOLOG SUB-Q SCH ×2 (07:32→12:18)
[2017-02-07] MEDS: LOVENOX SUB-Q SCH (07:37)
[2017-02-07] MEDS: PEPCID PO SCH (07:39)
[2017-02-07] MEDS: BABY ASPIRIN PO SCH (07:40)
[2017-02-07] MEDS: COLACE PO SCH (07:40)
[2017-02-07] MEDS: NORVASC PO SCH (07:40)
[2017-02-07] MEDS: GLUCOPHAGE PO SCH (07:40)
[2017-02-07] MEDS: PLAVIX PO SCH (07:40)
[2017-02-07 07:41] VITALS: BP 130/70
[2017-02-07] MEDS: COREG PO SCH (07:41)
--- NOTE | 2017-02-07 11:24 | Discharge Summary ---
Providers - Providers Date of Admission: 01/25/17 18:38 Date of discharge: 02/07/17 Attending physician: MAKAYLA CULVER 01/25/17 19:01 Occupational Therapy Evaluate and Treat [CONS] Routine Comment: Reason For Exam: s/p CVA Physical Therapy Evaluation and Treat [CONS] Routine Comment: Reason For Exam: s/p CVA Speech Therapy Evaluation and Treat [CONS] Routine Reason For Exam: s/p CVA Primary care physician: Dr. Alejandro Hills Hospitalization Reason for admission: right CVA Condition: Stable Hospital course: 56 y.o. right handed male who reported acute onset of left sided weakness, dizziness, and dysarthria a few days prior to presenting to [facility]. Pt initially presented to [facility] with symptoms; discharged home. Due to pt having ongoing symptoms, pt later went to [facility] for further evaluation. CT Brain showed hypodensity within the right LOLA distribution; MRI showed remote lacunar infarction and superimposed acute/subacute infraction of right frontal lobe, LOLA territory. Acute care course also notable for AFib with RVR (noted on admission), which spontaneously resolved; Right ICA stent placement on 01/13/2107 (80-99% stenosis noted on CTA). Pt continued with left sided weakness and functional deficits; therefore was admitted to IRU for aggressive therapies and ongoing medical management. Pt tolerated IRU course well; blood pressure and blood sugars remained well controlled. Left sided weakness improved, as well as , functional independence. At the time of discharge, pt has progressed to Independent with eating, UB Dressing, bed mobility; Dillon for grooming, LB dressing with adaptive equipment, toileting, bed/chair/WC transfers, wheelchair mobility, gait up to 170 feet with RW; supervision for bathing, toilet transfers , shower transfers, stairs, and car transfers; Susie for curbs. Pt has completed family training with sister. Pt is stable for d/c home. Disposition: - TO HOME OR SELFCARE - Discharge Diagnoses (1) Acute ischemic right LOLA stroke Status: Acute (2) Hemiparesis affecting left side as late effect of cerebrovascular accident Status: Acute (3) Abnormality of gait following cerebrovascular accident (CVA) Status: Acute (4) Stented coronary artery Status: Acute (5) HTN (hypertension) Status: Chronic Qualifiers: Hypertension type: essential hypertension Qualified Code(s): I10 - Essential (primary) hypertension (6) New onset a-fib Status: Acute (7) Diabetes Status: Acute Qualifiers: Diabetes mellitus type: type 2 Diabetes mellitus complication status: with hyperglycemia Diabetes mellitus complication detail: D Diabetic retinopathy severity: D Proliferative retinopathy type: P Diabetes mellitus macular edema: D Diabetes mellitus mcc insulin use: without mcc use Laterality: L Chronic kidney disease stage: C Qualified Code(s): E11.65 - Type 2 diabetes mellitus with hyperglycemia Core Measure Documentation - Palliative Care Palliative Care/ Comfort Measures: Not Applicable - Core Measures Any of the following diagnoses?: stroke - Stroke Discharge Requirements Statin for LDL = or >70 mg/dl on DC: Yes Anticoag for atrial fib/atrial flutter: Not Applicable Antithrombotic for ischemic stroke: Yes Exam - Constitutional Vitals: Temp Pulse Resp BP Pulse Ox 98.5 F 68 18 130/70 97 02/07/17 07:14 02/07/17 07:41 02/07/17 07:14 02/07/17 07:41 02/07/17 07:14 General appearance: Present: no acute distress, obese - EENT Eyes: Present: EOM intact ENT: hearing intact - Neck Neck: Present: supple, normal ROM - Respiratory Respiratory effort: normal - Extremities Extremities: No edema - Integumentary Integumentary: Present: clear - Psychiatric Psychiatric: appropriate mood/affect, cooperative - Neurologic Neurologic: CNII-XII intact, moves all extremities Plan Activity: no driving until cleared by PCP, fall precautions Weight Bearing Status: Full Weight Bearing Diet: low salt, diabetic Special Instructions: physical therapy, occupational therapy, other (outpt therapies at [facility]) Durable Medical Equipment Needed Upon Discharge: Walker-Rolling, Bedside Commode , other (tub transfers bench; [facility]) Additional Instructions: Dr. Wiliam Gamino, Neuro/Endovascular, in 1-2 weeks; Dr. Alma Miles, Vascular Surgery, in 1-2 weeks Follow up with: PRIMARY CAREMD [Primary Care Provider] - 7 Days ALJEANDRO HILLS MD [Staff Physician] - 7 Days Prescriptions: AtorvaSTATin [Lipitor] 80 mg PO QHS #30 tablet amLODIPine [Norvasc] 10 mg PO DAILY #30 tablet Aspirin BABY CHEW TAB 81 mg PO DAILY #30 Carvedilol [Coreg] 12.5 mg PO BID #60 tablet Clopidogrel Bisulfate [Plavix] 75 mg PO DAILY #30 tablet metFORMIN 500 mg PO BIDDIAB #60
== END 2017-02-07 15:10 | disposition home or self-care (01) | DRG 65 ==
LOC: 3B 18:38
PROVIDERS: ADMIT Family Medicine; ATTEND Family Medicine
DX: I63.521 Cerebral infarction due to unspecified occlusion or stenosis of right anterior cerebral artery (principal); I69.354 Hemiplegia and hemiparesis following cerebral infarction affecting left non-dominant side; I10 Essential (primary) hypertension; I48.91 Unspecified atrial fibrillation; R47.1 Dysarthria and anarthria; Z60.2 Problems related to living alone; R26.9 Unspecified abnormalities of gait and mobility; E11.65 Type 2 diabetes mellitus with hyperglycemia; Z82.49 Family history of ischemic heart disease and other diseases of the circulatory system; Z82.3 Family history of stroke; Z98.61 Coronary angioplasty status
CPT/HCPCS: 36415; 80048; 80053; 82962; 85025; 85027; A9270-GY; J1650